=== PATIENT | female | born 1960 | race Caucasian/White ===

== ENCOUNTER 2017-04-01 13:24 | Emergency (ER) | payer BC ==
[~2017-04-01] VITALS: Ht 175.3 cm; Wt 60.9 kg
[2017-04-01 13:26] VITALS: TEMP 99.2
[2017-04-01 14:33] LABS: BASO % 0.2 % (0.0-2.0); EOS % 0.3 % (0-4.0); GRAN # 7.5 (1.4-6.5); GRAN % 78.4 % (42.2-75.2); HEMATOCRIT 41.1 % (37.0-47.0); HEMOGLOBIN 13.8 g/dl (12.5-16.0); LYMPH # 1.6 (1.2-3.4); LYMPH % 16.5 % (20.0-51.0); MEAN CELL VOLUME 93 fl (80.0-100.0); MEAN CORPUSCULAR HEMOGLOBIN 31 pg (27.0-31.0); MEAN CORPUSCULAR HGB CONC 34 g/dl (33.0-37.0); MEAN PLATELET VOLUME 9.6 fl (7.4-10.4); MONO # 0.4 (0.1-0.6); MONO % 4.3 % (1.7-9.3); PLATELET COUNT 197 K/mm3 (130-400); RED BLOOD COUNT 4.43 M/mm3 (4.10-5.30); WHITE BLOOD COUNT 9.5 K/mm3 (4.8-10.8)
[2017-04-01 14:44] LABS: ADJUSTED CALCIUM 8.8 mg/dL (8.4-10.2); ALANINE AMINOTRANSFERASE 29 U/L (9-52); ALBUMIN 4.4 gm/dL (3.5-5.0); ALKALINE PHOSPHATASE 69 U/L (50-136); ANION GAP 12 mmol/L (7-16); BILIRUBIN,TOTAL 0.4 mg/dL (0.0-1.0); BLOOD UREA NITROGEN 14 mg/dL (7-17); C-REACTIVE PROTEIN < 0.5 mg/dL (0.0-0.9); CALCIUM 9.1 mg/dL (8.4-10.2); CARBON DIOXIDE 27 mmol/L (22-30); CHLORIDE 101 mmol/L (98-107); CREATININE, serum 0.77 mg/dL (0.52-1.25); GLUCOSE 159 mg/dL (74-106); POTASSIUM 3.3 mmol/L (3.4-5.0); SODIUM 139 mmol/L (137-145); TOTAL PROTEIN 7.4 gm/dL (6.4-8.2)
[2017-04-01] MEDS ORDERED: DOXYCYCLINE 10100 MG PO (14:59)
[2017-04-01 15:17] VITALS: BP 119/72; PULSE 77
== END 2017-04-01 15:18 | disposition home or self-care (01) ==
LOC: COL.ER 13:24
PROVIDERS: Emergency Medicine
DX: L03.113 Cellulitis of right upper limb (principal); Z23 Encounter for immunization; Z90.49 Acquired absence of other specified parts of digestive tract; Z98.890 Other specified postprocedural states
CPT/HCPCS: J0696

== ENCOUNTER → 2017-05-07 | Outpatient (CLI) | payer BC ==
[~2017-05-07] MED LIST: DOXYCYCLINE 10100 MG PO
[2017-05-08 00:34] LABS: IMMUNOGLOBULIN A 270 mg/dL (65-421); IMMUNOGLOBULIN G 1105 mg/dL (552-1631); IMMUNOGLOBULIN M, QUANTITATIVE 86 mg/dL (33-293)
[2017-05-09 11:04] LABS: COMPLEMENT C1 ESTERASE ANTIGEN 25 mg/dL (19 - 37)
[2017-05-09 11:36] LABS: ALBUMIN FRACTION 4.4 g/dL (2.6-4.5); ALBUMIN PERCENTAGE 61.9 % (48.7-61.8); ALPHA 1 FRACTION 0.3 g/dL (0.3-0.5); ALPHA 1 PERCENTAGE 3.6 % (3.4-8.3); ALPHA 2 FRACTION 0.6 g/dL (0.6-1.2); BETA 1 FRACTION 0.4 g/dL (0.4-0.6); BETA 1 PERCENTAGE 6.2 % (5.4-8.9); BETA 2 FRACTION 0.4 g/dL (0.2-0.5); BETA 2 PERCENTAGE 5.7 % (3.8-7.7); GAMMA PERCENTAGE 13.6 % (8.1-23.0); SERUM PROTEIN TOTAL 7.1 g/dL (6.1-7.7)
== END ==
LOC: COL.LAB 11:57
PROVIDERS: Allergy & Immunology
DX: T18.3XXD Foreign body in small intestine, subsequent encounter (principal)

== ENCOUNTER → 2017-05-30 | Outpatient (CLI) | payer BC ==
[2017-06-04 19:40] LABS: CIQ BINDING IMMUNE COMPLEX 1.5 ugE/mL (0.0-3.9)
== END ==
LOC: COL.LAB 09:09
PROVIDERS: Allergy & Immunology
DX: T78.3XXD Angioneurotic edema, subsequent encounter (principal)

== ENCOUNTER → 2017-07-13 | Outpatient (CLI) | payer BC | LOC: COL.RAD 16:11 | DX: R93.8 Abnormal findings on diagnostic imaging of other specified body structures (principal) ==

== ENCOUNTER → 2017-09-17 | Outpatient (CLI) | payer BC | LOC: MC.RAD 11:00 | DX: Z12.31 Encounter for screening mammogram for malignant neoplasm of breast (principal) ==

== ENCOUNTER → 2017-10-03 | Outpatient (CLI) | payer BC | LOC: MC.RAD 13:58 | DX: D24.1 Benign neoplasm of right breast (principal) ==

== ENCOUNTER → 2018-09-30 | Outpatient (CLI) | payer BC | LOC: MC.RAD 08:23 | DX: Z12.31 Encounter for screening mammogram for malignant neoplasm of breast (principal) ==

== ENCOUNTER → 2019-02-05 | Outpatient (CLI) | payer BC | LOC: ZCOL.LAB 17:33 | DX: M79.662 Pain in left lower leg (principal) ==

== ENCOUNTER → 2019-08-26 | Outpatient (CLI) | payer BC | LOC: COL.RAD 13:12 | DX: D25.9 Leiomyoma of uterus, unspecified (principal) ==

== ENCOUNTER 2019-08-29 12:13 | Emergency (ER) | payer BC ==
[~2019-08-29] VITALS: Ht 175.3 cm; Wt 60.9 kg
[2019-08-29] MEDS ORDERED: EFFEXOR 75M75 MG/TAB PO (12:23)
[2019-08-29] MEDS ORDERED: FOSAMAX 70MG TA70 MG PO (12:41)
[2019-08-29] MEDS ORDERED: TAZTIA120 PO (12:41)
[2019-08-29] MEDS ORDERED: PRILOSEC 20MG20 MG PO (12:42)
[2019-08-29 12:48] LABS: BASO % 0.5 % (0.0-2.0); EOS # 0.1 (0.0-0.7); EOS % 1.4 % (0-4.0); GRAN # 4.2 (1.4-6.5); GRAN % 48.7 % (42.2-75.2); HEMATOCRIT 42.1 % (37.0-47.0); HEMOGLOBIN 13.7 g/dl (12.5-16.0); LYMPH # 3.5 (1.2-3.4); LYMPH % 40.7 % (20.0-51.0); MEAN CELL VOLUME 95 fl (80.0-100.0); MEAN CORPUSCULAR HEMOGLOBIN 31 pg (27.0-31.0); MEAN CORPUSCULAR HGB CONC 33 g/dl (33.0-37.0); MEAN PLATELET VOLUME 9.8 fl (7.4-10.4); MONO # 0.7 (0.1-0.6); MONO % 8.5 % (1.7-9.3); PLATELET COUNT 280 K/mm3 (130-400); RED BLOOD COUNT 4.43 M/mm3 (4.10-5.30); REDCELL DISTRIBUTION WIDTH-CV 12.3 % (11.5-14.5)
[2019-08-29] MEDS ORDERED: TIAZAC180 MG PO (13:26)
[2019-08-29 14:01] LABS: ALBUMIN 4.1 gm/dL (3.5-5.0); BILIRUBIN,TOTAL 0.2 mg/dL (0.0-1.0); CALCIUM 9.1 mg/dL (8.4-10.2); CREATININE, serum 0.88 (0.52-1.25); POTASSIUM 3.3 mmol/L (3.4-5.0); TOTAL PROTEIN 6.9 gm/dL (6.4-8.2)
[2019-08-29 14:30] LABS: TSH w REFLEX 3.94 uIU/mL (0.465-4.680)
[2019-08-29 15:00] VITALS: BP 101/61; PULSE 89
== END 2019-08-29 15:00 | disposition home or self-care (01) ==
LOC: COL.ER 12:13
PROVIDERS: Emergency Medicine
DX: I47.1 Supraventricular tachycardia (principal)
CPT/HCPCS: J0153

== ENCOUNTER → 2019-10-08 | Outpatient (CLI) | payer BC ==
[~2019-10-08] MED LIST changes: +EFFEXOR 75M75 MG/TAB PO; +FOSAMAX 70MG TA70 MG PO; +PRILOSEC 20MG20 MG PO; +TAZTIA120 PO; +TIAZAC180 MG PO
== END ==
LOC: MC.RAD 10:53
DX: Z12.31 Encounter for screening mammogram for malignant neoplasm of breast (principal)

== ENCOUNTER 2020-03-09 09:51 | Inpatient (IN) | payer BC ==
[~2020-03-09] VITALS: Ht 175.3 cm; Wt 63.4 kg
[2020-04-06] VITALS (11 sets, daily range): BP systolic 110–128; BP diastolic 49–72; PULSE 61–83; TEMP 97–98.4
--- NOTE | 2020-04-06 12:04 | NUR ---
First visit from the crude tester. No needs right now.
--- NOTE | 2020-04-06 15:26 | NUR ---
PT TO FLOOR @ 1330 PER BED WITH REPORT FROM [facility]. PT IS A/O X3, LUNGS CLEAR, BOWEL SOUNDS PRESENT. DRESSING TO RIGHT KNEE CDI IN OCCLUSIVE ACEWRAP. PEDAL PULSES PALPABLE. PT RESTING IN BED. VSS, IV TO PUMP PER ORDERS.
--- NOTE | 2020-04-06 15:52 | NUR ---
H[employer] Mat Assembler met with patient to discuss discharge planning. Patient lives in [place] with her , Clifford (ph#[phone]) and sees Dr. Harp for primary care. Patient states her daughter also lives in [facility] and is supportive. Patient obtains medications from [facility] with no difficulties and does not normally use any DME. Patient does have a walker to use during recovery. Patient reports she is independent with ADLS and lives an active lifestyle. Patient has Advance Directives completed however [facility]. Patient plans to return home upon discharge. SW will continue to follow for discharge needs.
--- NOTE | 2020-04-06 18:53 | NUR ---
REPORT TO [facility]
--- NOTE | 2020-04-06 19:45 | NUR ---
Pt. sitting up in bed at this time. Pt. is A&OX3, assessment complete. IV to lt. wrist patent, IV fluids infusing per orders. Dressing to rt. knee CDI. Pt. reported pain at a 6 on pain scale, will give pain meds per orders. Pt. denies further needs, call light within reach.
[2020-04-07 00:13] VITALS: BP 120/55; PULSE 75; TEMP 98.4
[2020-04-07 05:02] VITALS: BP 108/78; PULSE 72; TEMP 98.4
[2020-04-07 07:01] LABS: HEMATOCRIT 36.5 % (37.0-47.0)
[2020-04-07 07:39] VITALS: BP 117/70; PULSE 88; TEMP 99
[2020-04-07 10:53] VITALS: BP 116/62; PULSE 89; TEMP 98.2
--- NOTE | 2020-04-07 13:54 | NUR ---
PT COMPLETED THERAPY INCLUDING STAIRS AND IS NOW WORKING WITH OT ON SHOWERING AND DRESSING.
[2020-04-07 15:49] VITALS: BP 128/60; PULSE 75; TEMP 98.7
[2020-04-07] MEDS ORDERED: ASPI325T6 PO (16:05)
[2020-04-07] MEDS ORDERED: ULTRAM 50MG TAB50 MG PO (16:06)
[2020-04-07] MEDS ORDERED: SENOKOT S 50 MG1 TAB PO (16:06)
[2020-04-07] MEDS ORDERED: ROXICODONE 55 MG/TAB PO (16:06)
--- NOTE | 2020-04-07 17:59 | NUR ---
DISCHARGE INSTRUCTIONS REVIEWED WITH PT QUESTIONS ANSWERED. PT TAKEN TO ED ENTRANCE BY WHEEL CHAIR.
== END 2020-04-07 17:30 | disposition home or self-care (01) | DRG 470 ==
LOC: JCC 04-06 06:39
PROVIDERS: ADMIT Orthopaedic Surgery
PROC: 0SRC0J9 Replacement of Right Knee Joint with Synthetic Substitute, Cemented, Open Approach (ICD-10-PCS; principal; 2020-04-06 11:15)
DX: M17.31 Unilateral post-traumatic osteoarthritis, right knee (principal); F32.9 Major depressive disorder, single episode, unspecified; M81.0 Age-related osteoporosis without current pathological fracture
CPT/HCPCS: A9284; C1713; C1776; J0690; J2270; J2704; J7120

== ENCOUNTER → 2020-07-29 | Outpatient (CLI) | payer BC ==
[~2020-07-29] MED LIST changes: +ASPI325T6 PO; +ROXICODONE 55 MG/TAB PO; +SENOKOT S 50 MG1 TAB PO; +ULTRAM 50MG TAB50 MG PO
== END ==
LOC: COL.RAD 13:30
DX: H57.11 Ocular pain, right eye (principal); G44.89 Other headache syndrome

== ENCOUNTER → 2020-12-20 | Outpatient (CLI) | payer BC | LOC: MC.RAD 07:30 | DX: Z12.31 Encounter for screening mammogram for malignant neoplasm of breast (principal) ==

== ENCOUNTER → 2022-01-24 | Outpatient (CLI) | payer BC | LOC: MC.RAD 15:33 | DX: Z12.31 Encounter for screening mammogram for malignant neoplasm of breast (principal) ==

== ENCOUNTER → 2023-01-29 | Outpatient (CLI) | payer OTHER | LOC: MC.RAD 14:35 | DX: Z12.31 Encounter for screening mammogram for malignant neoplasm of breast (principal) ==